=== PATIENT | male | born 1960 | race Caucasian/White ===

== ENCOUNTER → 2020-07-31 | Outpatient (CLI) | payer BC, OTHER ==
--- NOTE | 2020-07-31 16:34 | RAD ---
CT LUMBAR SPINE WO CONTRAST Indication: Back pain Technique: Noncontrast CT imaging was performed of the lumbar spine, multiplanar reconstruction images submitted. One or more of the following individualized dose reduction techniques were utilized for this examination: 1. Automated exposure control 2. Adjustment of the mA and/or kV according to patient size 3. Use of iterative reconstruction technique. Comparison: None Findings: There is moderate to severe L4-5 degenerative disc disease, to lesser degree L3-4 and L5-S1. Lumbar vertebral body stature is overall maintained. There is very minimal grade 1 anterior spondylolisthesis at L3-4, very minimal posterior subluxation L5 relative S1. There is mild S-shaped curvature of the lumbar spine. There is fullness of the mid right kidney with density measurements not of a simple cyst about 26 Hounsfield units, grossly estimated about 3.6 cm. There is a small about 0.2 cm right renal calculus. L1-2: There is facet degenerative change. Spinal canal and neural foramina are overall adequate. L2-3: There is moderate bilateral facet hypertrophic change. Spinal canal and neural foramina are not significantly narrowed. L3-4: There is severe right facet degenerative change. There is mild buckling of the ligamentum flavum, some associated calcification the left. There is moderate to severe spinal stenosis with lateral recess stenosis bilaterally. There is moderate to severe neural foramina compromise bilaterally by facet degenerative change and disc osteophyte complex. L4-5: There is disc osteophyte complex. There is moderate facet hypertrophic change greater on the right. There is [id number] narrowing of the far right lateral recess, very mild narrowing on the left. There is mild left and severe right neural foramina compromise. There is impingement of the exiting right L4 nerve root in the neural foramen by facet degenerative change and disc osteophyte complex. L5-S1: There is moderate facet hypertrophic change somewhat greater on the left. Spinal canal is overall adequate. There is moderate to severe bilateral neural foramina compromise primarily from posteriorly by facets. IMPRESSION: 1. There is focus of fullness and heterogeneous density of the mid right kidney, possible underlying mass for which pre and postcontrast CT or ultrasound recommended. There is small right renal calculus. 2. There is lumbar degenerative disc disease greatest at L4-5. There is also spondylosis greatest at L4-5. 3. There is moderate to severe spinal stenosis with lateral recess stenosis bilaterally at L3-4, lesser degree of right lateral recess stenosis at L4-5. 4. There is multilevel lumbar neural foramina compromise, severe narrowing on the right at L4-5 with impingement of the exiting right L4 nerve root, moderate to severe neural foramina compromise bilaterally at L3-4 and L5-S1. Findings discussed with GILL JONES at 07/31/2020 4:28 PM. Electronically signed by: Scott Bynum MD (07/31/2020 4:31 PM) [facility]
== END ==
LOC: CT 15:50
PROVIDERS: ATTEND Family Medicine
DX: M51.37 Other intervertebral disc degeneration, lumbosacral region (principal); M48.07 Spinal stenosis, lumbosacral region; M43.16 Spondylolisthesis, lumbar region; N20.0 Calculus of kidney; M25.78 Osteophyte, vertebrae
CPT/HCPCS: 72131